=== PATIENT | female | born 1945 | race Caucasian/White ===

== ENCOUNTER 2016-07-27 04:13 | Emergency (ER) | payer OTHER ==
[~2016-07-27 04:13] MED LIST: CIPRO 500MG TA500 MG PO; DICYCLOMINE HCL20 MG PO; FISH OIL CONC1000 MG PO; FLOMAX(MONOGRA0.4 MG PO; GABAPENTIN300 MG PO; GLUCOSAMINE500 MG PO; NORCO 325 MG-51 TAB PO; SIMVASTATIN40 MG PO; SYNTHROID0.112 MG PO
[2016-07-27 04:21] VITALS: BP 185/84
[2016-07-27] MEDS ORDERED: PROTONIX20 M1 PO (04:45)
--- NOTE | 2016-07-27 04:46 | ED DYSPNEA/ASTHMA COMPLAINT ---
History of Present Illness General Chief Complaint: Dyspnea (COPD, CHF, Other) Stated Complaint: DIFF BREATHING Source: patient Exam Limitations: no limitations Vital Signs & Intake/Output Vital Signs & Intake/Output Vital Signs Date Time Temp Pulse Resp B/P Pulse O2 O2 Flow FiO2 Ox Delivery Rate 07/27 426 98 Room Air Room Air 07/27 420 95.2 87 20 185/84 98 Room Air Allergies Coded Allergies: No Known Allergies (07/27/16) Reconcile Medications Acetaminophen/Hydrocodone Bi (Geronimo 325 MG-5 MG) 1 TAB TAB 1-2 TAB PO Q6H PRN PAIN Ciprofloxacin (Cipro) 500 MG TAB 1 TAB PO BID UTI Dicyclomine Hydrochloride (Dicyclomine HCl) 20 MG TAB 4 TAB PO 4 TIMES/DAY IBS (Reported) Fish Oil (Fish Oil Concentrate) 1,000 MG SGL 1 CAP PO DAILY SUPPLEMENT ( Reported) Gabapentin 300 MG CAPSULE 1 TAB PO QPM NEUROPATHY (Reported) Glucosamine Sulfate (Glucosamine) 500 MG CAP 1 CAP PO DAILY SUPPLEMENT ( Reported) Levothyroxine Sodium (Synthroid) 0.112 MG TAB 1 TAB PO DAILY AC THYROID ( Reported) Simvastatin 40 MG TABLET 1 TAB PO QPM CHOLESTEROL (Reported) Tamsulosin Hydrochloride (Flomax) 0.4 MG CAP 1 CAP PO DAILY kidney stone Triage Note: 70YO FEMALE JTO RM 8 W/CO BURNING FEELING THAT AWOKE HER THIS AM. STATES HX ACID REFLUX AND SHE HAD "AWFUL TASTE AND BURNING IN HER THROAT THAT IS NOT PRESENT NOW" Triage Nurses Notes Reviewed? yes HPI: Patient presents for evaluation of possible acid reflux symptoms. Patient states that she awoke with yellow phlegm production and dyspnea prior to arrival. She states she had to take small breaths. She states on her way to the emergency department she began feeling better. She states that the last time she had symptoms like this was related to acid reflux. She is quite convinced that this is the underlying cause for her symptoms. She no longer takes stomach acid medicine. The episode is described as severe and abrupt in onset. She denies any burning sensation in the back of the throat or in the chest. Past History Travel History Traveled to [place] past 21 day No Medical History Any Pertinent Medical History? see below for history Cardiovascular: hyperlipidemia Gastrointestinal: GERD Endocrine: hypothyroidism Surgical History Surgical History: non-contributory Psychosocial History What is your primary language Colombian Tobacco Use: Never used Family History Hx Contributory? No Review of Systems Review of Systems Constitutional: Reports: no symptoms. EENTM: Reports: no symptoms. Respiratory: Reports: see HPI. Cardiovascular: Reports: no symptoms. GI: Reports: no symptoms. Genitourinary: Reports: no symptoms. Musculoskeletal: Reports: no symptoms. Skin: Reports: no symptoms. Neurological/Psychological: Reports: no symptoms. Hematologic/Endocrine: Reports: no symptoms. Immunologic/Allergic: Reports: no symptoms. All Other Systems: Reviewed and Negative Physical Exam Physical Exam Respiratory: see below Comments: Gen.: Well-nourished, well-developed, no acute respiratory distress. Head: Normocephalic, atraumatic. Eyes: Normal inspection bilaterally Ears: Normal inspection bilaterally Nose: Normal inspection Throat/mouth : Moist mucosa, no oropharyngeal erythema Neck: Supple, full range of motion, no goiter, no stridor Heart: Regular rate and rhythm, no murmurs rubs or gallops Lungs: Clear to auscultation bilaterally with normal air entry Chest: Nontender Back: Normal range of motion Abdomen: Soft, nontender, nondistended, normal bowel sounds Extremities: Normal range of motion grossly, equal radial pulses, no cyanosis clubbing or edema Neurologic: Cranial nerves grossly intact, speech is clear Skin: warm and dry Psychiatric: Calm, cooperative, no apparent delusions or hallucinations Core Measures ACS in differential dx? No Severe Sepsis Present: No Septic Shock Present: No Progress Differential Diagnosis: AMI, bronchitis, CHF, COPD, pneumonia, unstable angina Plan of Care: Current Medications Sig/Kami Start time Last Medication Dose Stop Time Status Admin Al Hydroxide/Mg 30 ML ONCE ONE 07/27 444 UNVr Hydroxide 07/27 445 (Maalox Plus) Initial ED EKG: none Departure Departure Disposition: HOME OR SELF CARE Condition: Stable Clinical Impression Primary Impression: Acid reflux Qualifiers: Esophagitis presence: esophagitis presence not specified Qualified Code: K21.9 - Gastro-esophageal reflux disease without esophagitis Referrals: ADRIANE POTTS,KARMA Juan (PCP/Family) Additional Instructions: Small meals and avoid lying flat after meals. Protonix as prescribed. Follow- up with your primary care physician for reevaluation this week. Return if any concerns or sudden worsening. Thank you for choosing the [facility] for your care. It was a pleasure to serve you today. López Rodriguez M.D. [facility] Departure Forms: Customer Survey General Discharge Information Prescriptions: Current Visit Scripts Pantoprazole Sodium (Protonix) 1 TAB PO DAILY #30 TAB Critical Care Note Critical Care Note Critical Care Time: non-applicable
== END 2016-07-27 04:54 ==
LOC: ERH 04:13
DX: K21.9 Gastro-esophageal reflux disease without esophagitis (principal)